=== PATIENT | female | born 1975 | race Hispanic/Latino ===

== ENCOUNTER 2025-06-01 08:25 | Observation (INO) | payer OTHER ==
[2025-05-28 08:39] VITALS: BMI 25.0
[2025-05-28 09:03] LABS: Anion Gap 17 mmol/L (10-20); BUN (Urea Nitrogen) 15 mg/dL (7.0-18.7); Calc. Creatinine Clearance 0 mL/min (70-130); Calcium 8.9 mg/dL (7.8-10.44); Carbon Dioxide 19 mmol/L (22-29); Chloride 109 mmol/L (98-107); Glucose 93 mg/dL (70-105); Potassium 5.1 mmol/L (3.5-5.1); Sodium 140 mmol/L (136-145)
[2025-05-28 09:11] LABS: BHCG - Serum Negative (NEGATIVE); Pregs Control Background? CLEAR/WHITE (CLR/WHITE); Pregs Control Bar Appear? YES (CONTROL BAR)
[2025-05-28 09:18] LABS: Hematocrit 40.0 % (34.9-44.5); Hemoglobin 13.6 g/dL (12.0-15.5); Mean Corpuscular Hemoglobin 31.7 pg (27.0-33.0); Mean Corpuscular Volume 93.2 fL (81.6-98.3); Platelet Count 318 10x3/uL (150-450); Red Blood Cell (RBC) Count 4.29 10x6/uL (3.90-5.03); White Blood Cell (WBC) Count 8.41 10x3/uL (3.5-10.5)
[2025-06-01] MEDS ORDERED: Famotidine/PF 20 mg/2ml Vial ONE (08:44)
[2025-06-01] MEDS ORDERED: Gabapentin 300 MG CAP ONE (08:44)
[2025-06-01] MEDS ORDERED: Scopolamine 1 mg/72 hour Patch ONE (09:22)
[2025-06-01] MEDS ORDERED: PROPOFOL 20 ML ONE (10:42)
[2025-06-01] MEDS ORDERED: Rocuronium Bromide 10 MG/ML (10ML VIAL) ONE (10:44)
[2025-06-01] MEDS ORDERED: Ondansetron PF 4 MG/2 ML Vial ONE (10:44)
[2025-06-01] MEDS ORDERED: SUGAMMADEX SODIUM 200 MG/2 ML VIAL ONE (11:36)
[2025-06-01] MEDS ORDERED: HYDROcodone/Acetaminophen 5/325 mg Tablet PO PRN (14:16)
[2025-06-01] MEDS ORDERED: diphenhydrAMINE 25 MG CAP PO PRN (14:16)
[2025-06-01] MEDS ORDERED: Bisacodyl 10 MG SUPP PR PRN (14:16)
[2025-06-01] MEDS ORDERED: Simethicone Chewable 80 MG TAB PO PRN (14:16)
[2025-06-01] MEDS: Ondansetron PF 4 MG/2 ML Vial IVP PRN (17:44)
[2025-06-01] MEDS: HYDROcodone/Acetaminophen 5/325 mg Tablet PO PRN (17:44)
[2025-06-02 06:11] LABS: Hematocrit 36.8 % (34.9-44.5); Hemoglobin 12.2 g/dL (12.0-15.5); Mean Corpuscular Hemoglobin 31.3 pg (27.0-33.0); Mean Corpuscular Volume 94.4 fL (81.6-98.3); Platelet Count 254 10x3/uL (150-450); Red Blood Cell (RBC) Count 3.90 10x6/uL (3.90-5.03); White Blood Cell (WBC) Count 14.82 10x3/uL (3.5-10.5)
[2025-06-02 08:36] VITALS: BP 133/80; TEMP 98.4
== END 2025-06-02 11:15 | disposition home or self-care (01) ==
LOC: CSHSDC 08:25 → CSHPED 14:54
PROVIDERS: ADMIT Obstetrics & Gynecology; ATTEND Obstetrics & Gynecology
PROC: 0UT90ZL Resection of Uterus, Supracervical, Open Approach (ICD-10-PCS; principal; 2025-06-02)
PROC: 0UT70ZZ Resection of Bilateral Fallopian Tubes, Open Approach (ICD-10-PCS; 2025-06-02)
DX: D25.1 Intramural leiomyoma of uterus (principal); J45.909 Unspecified asthma, uncomplicated; K21.9 Gastro-esophageal reflux disease without esophagitis; Z88.6 Allergy status to analgesic agent
CPT/HCPCS: 36415; 36416; 80048; 84703; 85027; 86850; 86900; 86901; 88307; J1100; J1308; J2250; J2270; J2405; J2550; J2704; J3010; J7030